=== PATIENT | female | born 1990 | race Caucasian/White ===

== ENCOUNTER 2018-02-21 09:30 | Emergency (ER) | payer OTHER, MEDICAID ==
[2018-02-21 10:06] VITALS: RESP 18; TEMP 96.8
[2018-02-21 10:27] VITALS: BP 111/68; PULSE 54; O2SAT 97
== END 2018-02-21 11:15 | disposition home or self-care (01) | DRG 782 ==
LOC: ED 09:30
DX: O36.8120 Decreased fetal movements, second trimester, not applicable or unspecified (principal); Z3A.26 26 weeks gestation of pregnancy
CPT/HCPCS: 59025; 99282; 99283

== ENCOUNTER 2018-05-29 19:52 | Inpatient (IN) | payer OTHER, MEDICAID ==
[2018-05-29] MEDS ORDERED: OXYTOCIN 10000 MU/ML SOL IM PRN (20:43)
[2018-05-29] MEDS ORDERED: CARBOPROST 250 MCG/ML SOL IM PRN (20:43)
[2018-05-29] MEDS ORDERED: FENTANYL 100MCG/2ML SOL IV PRN (20:43)
[2018-05-29] MEDS ORDERED: LACTATED RINGERS 1,000 ML IV PRN (20:43)
[2018-05-29] MEDS ORDERED: SODIUM CHLORIDE 0.9% FLUSH 10 ML SOL IV PRN (20:43)
[2018-05-29] MEDS ORDERED: MEPIVACAINE HCL 1% MPF 30 ML/VIAL SOL INFIL PRN (20:43)
[2018-05-29] MEDS ORDERED: METHYLERGONOVINE MALEATE 0.2 MG/ML SOL IM PRN (20:43)
[2018-05-29] MEDS ORDERED: ALUMINUM/MAGNESIUM 30 ML SUS ONE (22:01)
[2018-05-29] MEDS: ALUMINUM/MAGNESIUM 30 ML SUS PO PRN (22:02)
[2018-05-29] MEDS: SODIUM CHLORIDE 0.9% FLUSH 10 ML SOL IV SCH (22:20)
[2018-05-29 22:30] LABS: BASOPHILS % (AUTO) 0 % (0-3); EOSINOPHILS % (AUTO) 1 % (0-9); HEMATOCRIT 37 % (35-47); HEMOGLOBIN 12.2 gm/dl (12.0-15.5); LYMPHOCYTES % (AUTO) 14.8 % (10-50); MEAN CORPUSCULAR HEMOGLOBIN 30.2 pg (27.0-32.0); MEAN CORPUSCULAR HGB CONC 33.5 gm/dl (32.0-36.0); MEAN CORPUSCULAR VOLUME 90 fL (81-99); MONOCYTES % (AUTO) 8.3 % (0-12); NEUTROPHILS % (AUTO) 75.9 % (37-80)
[2018-05-30] MEDS: ALUMINUM/MAGNESIUM 30 ML SUS PO PRN ×3 (01:49→13:22)
[2018-05-30] MEDS ORDERED: ALUMINUM/MAGNESIUM 30 ML SUS ONE ×3 (01:49→13:21)
[2018-05-30] MEDS: SODIUM CHLORIDE 0.9% FLUSH 10 ML SOL IV SCH ×3 (04:48→23:34)
[2018-05-30] MEDS ORDERED: NALOXONE HYDROCHLORIDE 0.4 MG/ML SOL IV PRN (09:55)
[2018-05-30] MEDS ORDERED: NALBUPHINE HCL 20 MG/ML SOL IV PRN (09:55)
[2018-05-30] MEDS ORDERED: DIPHENHYDRAMINE 50 MG/ML SOL IV PRN (09:55)
[2018-05-30] MEDS ORDERED: EPHEDRINE SULFATE 50 MG/ML SOL IV PRN (09:55)
[2018-05-30] MEDS ORDERED: LACTATED RINGERS 1,000 ML IV SCH (10:00)
[2018-05-30] MEDS ORDERED: ROPIVACAINE HYDROCHLORIDE 5 MG/ML SOL ONE (10:07)
[2018-05-30] MEDS ORDERED: LIDOCAINE HCL 2% MPF 10 ML SOL ONE ×3 (10:07→15:30)
[2018-05-30] MEDS ORDERED: FENTANYL 250 MCG/ 5ML SOL ONE (10:07)
[2018-05-30] MEDS: LACTATED RINGERS 1,000 ML IV SCH (14:53)
[2018-05-30] MEDS ORDERED: ALUMINUM/MAGNESIUM 30 ML SUS PO PRN (21:32)
[2018-05-30] MEDS ORDERED: APAP/HYDROCODONE 1 EACH TABLET PO PRN (21:35)
[2018-05-30] MEDS ORDERED: METHYLERGONOVINE MALEATE 0.2 MG TAB PO PRN (21:35)
[2018-05-30] MEDS ORDERED: WITCH HAZEL 1 EA PAD TOP PRN (21:35)
[2018-05-30] MEDS ORDERED: BENZOCAINE/MENTHOL 1 SPR TOP PRN (21:35)
[2018-05-30] MEDS ORDERED: TEMAZEPAM 15MG 15 MG CAP PO PRN (21:35)
[2018-05-30] MEDS ORDERED: FLEET ENEMA PR PRN (21:35)
[2018-05-30] MEDS ORDERED: BISACODYL 10 MG SUP PR PRN (21:35)
[2018-05-30] MEDS: IBUPROFEN 600 MG TAB PO PRN (23:33)
[2018-05-31] MEDS: SODIUM CHLORIDE 0.9% FLUSH 10 ML SOL IV SCH (08:07)
[2018-05-31] MEDS ORDERED: DOCUSATE SODIUM 100 MG SGL PO PRN (08:09)
[2018-05-31] MEDS: IBUPROFEN 600 MG TAB PO PRN ×2 (08:24→16:29)
[2018-05-31] MEDS ORDERED: DOCUSATE SODIUM 100 MG SGL PO SCH (09:00)
[2018-05-31] MEDS: MULTIVITAMIN2 1 EA TAB PO SCH (09:43)
[2018-05-31] MEDS: FOLIC ACID 1 MG TAB PO SCH (09:43)
[2018-05-31] MEDS: DOCUSATE SODIUM 100 MG SGL PO SCH ×2 (09:44→20:30)
[2018-05-31 14:31] VITALS: RESP 16
[2018-05-31] MEDS: LACTATED RINGERS 1,000 ML IV SCH (19:32)
[2018-06-01 06:04] VITALS: O2SAT 97
[2018-06-01] MEDS: IBUPROFEN 600 MG TAB PO PRN ×2 (08:44→15:08)
[2018-06-01] MEDS: FOLIC ACID 1 MG TAB PO SCH (08:44)
[2018-06-01] MEDS: DOCUSATE SODIUM 100 MG SGL PO SCH (08:44)
[2018-06-01] MEDS: MULTIVITAMIN2 1 EA TAB PO SCH (08:44)
[2018-06-01 15:08] VITALS: BP 121/72; PULSE 76; TEMP 98.2
== END 2018-06-01 19:05 | disposition home or self-care (01) | DRG 807 ==
LOC: OB 19:52 → OBSVTOIN 19:52
PROVIDERS: ADMIT Family Medicine; ATTEND Family Medicine
PROC: 0U7C7ZZ Dilation of Cervix, Via Natural or Artificial Opening (ICD-10-PCS; 2018-05-29)
PROC: 10E0XZZ Delivery of Products of Conception, External Approach (ICD-10-PCS; principal; 2018-05-30)
PROC: 0KQM0ZZ Repair Perineum Muscle, Open Approach (ICD-10-PCS; 2018-05-30)
DX: O80 Encounter for full-term uncomplicated delivery (principal); Z37.0 Single live birth; O66.0 Obstructed labor due to shoulder dystocia; Z3A.40 40 weeks gestation of pregnancy; O69.81X0 Labor and delivery complicated by cord around neck, without compression, not applicable or unspecified
CPT/HCPCS: 36415; 59025; 85018; 85025; J0670; J2590; J2795; J3010; A9270-GY